=== PATIENT | male | born 1975 | race Caucasian/White ===

== ENCOUNTER 2020-03-08 18:03 | Emergency (ER) | payer BC ==
[2020-03-08] MEDS ORDERED: Diphtheria,Pertussis(Acell),Tetanus Vaccine 0.5 ML SDV IM ONE (18:22)
[2020-03-08] MEDS ORDERED: Bacitracin/Neomycin/Polymyxin B Oint 0.9 GM U/D Packet ONE (18:30)
--- NOTE | 2020-03-08 18:34 | EDM.PDOC ---
ED HPI GENERAL MEDICAL PROBLEM - General Chief Complaint: Laceration Stated Complaint: FINGER LACERATION Time Seen by Provider: 03/08/20 18:05 Source of Information: Reports: Patient History Limitations: Reports: No Limitations - History of Present Illness INITIAL COMMENTS - FREE TEXT/NARRATIVE: Cut right 4th finger Tetanus 2007 Cut finger when reaching towards a dog Hit it against something - Related Data Allergies Allergy/AdvReac Type Severity Reaction Status Date / Time No Known Allergies Allergy Verified 03/08/20 18:03 Home Meds: Home Meds atorvaSTATin [Lipitor] 10 mg PO BEDTIME 03/08/20 [History] nadoloL [Naldol] 40 mg PO BEDTIME 03/08/20 [History] Social & Family History - Tobacco Use Smoking Status *Q: Current Some Day Smoker Years of Tobacco use: 20 Packs/Tins Daily: 0.2 ED ROS GENERAL - Review of Systems Review Of Systems: See Below Skin: Reports: Other (Laceration right 4th finger) ED EXAM, SKIN/RASH Exam: See Below Skin: Other (3 cm laceration extensor surface right 4th finger Tendon and neurovascualr exam intact) ED SKIN PROCEDURES - Laceration/Wound Repair Right Digit - 4th (Ring) Appearance: Subcutaneous Distal NVT: Neuro & Vascular Intact, No Tendon Injury Anesthetic Type: Local Local Anesthesia - Lidocaine (Xylocaine): 1% Plain Local Anesthetic Volume: 2cc Skin Prep: Chlorhexidine (Hibiciens) Exploration/Debridement/Repair: Wound Explored Closed with: Sutures Lac/Wound length In cm: 3 Suture Size: 4-0 # of Sutures: 5 Suture Type: Nylon Sterile Dressing Applied: Nurse Tetanus Status Addressed: Yes Complications: No Course - Vital Signs Last Recorded V/S: Last Vital Signs Temp 97.7 F 03/08/20 18:06 Pulse 97 03/08/20 18:06 Resp 16 03/08/20 18:06 BP 130/82 03/08/20 18:06 Pulse Ox 100 03/08/20 18:06 - Orders/Labs/Meds Orders: Active Orders 24 hr Category Date Time Status Vaccines to be Administered [RC] PER UNIT ROUTINE Care 03/08/20 18:22 Active Meds: Medications Discontinued Medications Generic Name Dose Route Start Last Admin Trade Name Freq PRN Reason Stop Dose Admin Diphtheria/Tetanus/Acell Pertussis 0.5 ml 03/08/20 18:22 03/08/20 18:27 Adacel IM 03/08/20 18:23 0.5 ml .ONCE ONE Administration Lidocaine HCl Confirm 03/08/20 18:16 Xylocaine-Mpf 1% Administered 03/08/20 18:17 Dose 5 ml .ROUTE .STK-MED ONE Departure - Departure Time of Disposition: 18:45 Disposition: Home, Self-Care 01 Clinical Impression: Finger laceration Qualifiers: Encounter type: initial encounter Finger: ring finger Damage to nail status: without damage Foreign body presence: without foreign body Laterality: right Qualified Code(s): S61.214A - Laceration without foreign body of right ring finger without damage to nail, initial encounter - Discharge Information *PRESCRIPTION DRUG MONITORING PROGRAM REVIEWED*: Not Applicable *COPY OF PRESCRIPTION DRUG MONITORING REPORT IN PATIENT DREAD: Not Applicable Instructions: Laceration Care, Adult, Sutured Wound Care Referrals: Carmela Marx PA-C [Primary Care Provider] - Additional Instructions: Keep wound clean Sutures out in 10-14 days Follow up in clinic Sepsis Event Note (ED) - Evaluation Sepsis Screening Result: No Definite Risk - Focused Exam Vital Signs: Vital Signs Temp Pulse Resp BP Pulse Ox 03/08/20 18:06 97.7 F 97 16 130/82 100 - My Orders Last 24 Hours: My Active Orders 03/08/20 18:22 Vaccines to be Administered [RC] PER UNIT ROUTINE - Assessment/Plan Last 24 Hours: My Active Orders 03/08/20 18:22 Vaccines to be Administered [RC] PER UNIT ROUTINE
== END 2020-03-08 18:40 | disposition home or self-care (01) ==
LOC: LL.ED 18:03
DX: S61.214A Laceration without foreign body of right ring finger without damage to nail, initial encounter (principal); F17.210 Nicotine dependence, cigarettes, uncomplicated; Z79.899 Other long term (current) drug therapy; Z23 Encounter for immunization; W22.8XXA Striking against or struck by other objects, initial encounter
CPT/HCPCS: 12002; 90471; 90715; 99282; J2001

== ENCOUNTER 2024-08-06 22:48 | Emergency (ER) | payer BC | END 2024-08-06 23:20 | disposition left against medical advice (07) | LOC: LL.ED 22:48 | DX: R53.81 Other malaise (principal); E78.00 Pure hypercholesterolemia, unspecified; F17.210 Nicotine dependence, cigarettes, uncomplicated; Z79.899 Other long term (current) drug therapy; Z91.038 Other insect allergy status | CPT/HCPCS: 99284 ==